=== PATIENT | female | born 1980 | race African-American/Black ===

== ENCOUNTER 2016-04-25 10:04 | Day surgery (SDC) | payer OTHER ==
[2016-04-24 10:01] VITALS: BMI 32.5
[2016-04-25] MEDS ORDERED: BUPIVACAINE HCL/PF 0.5% (5MG/ML) 10 ML VIAL ONE (10:14)
[2016-04-25 10:46] LABS: BASOPHIL 0.6 % (0-2.0); EOSINOPHIL 4.8 % (0-4.5); MCHC 33.6 g/dl (32.0-36.0); MEAN CELL VOLUME 92.2 fl (80-96); MEAN PLT VOLUME 7.4 fl (7.5-11.1); NEUTROPHILS 49.5 % (42.8-82.8); PLATELET COUNT 248 K/MM3 (134-434); RDW 13.5 % (11.6-15.6); WHITE BLOOD COUNT 5.5 K/mm3 (4.0-10.0)
[2016-04-25 11:03] LABS: INR 0.98 (0.82-1.09); PROTHROMBIN TIME (PATIENT) 10.8 SEC (9.98-11.88)
[2016-04-25 11:21] LABS: ALBUMIN 3.4 g/dl (3.4-5.0); ANION GAP 7 (8-16); CO2 26 mmol/L (21-32); CREATININE 0.7 mg/dL (0.55-1.02); GLUCOSE,RANDOM 89 mg/dL (74-106); SGOT/AST 20 U/L (15-37); SGPT/ALT 29 U/L (12-78)
[2016-04-25 11:24] LABS: ALK PHOS 70 U/L (45-117); BILIRUBIN,TOTAL 0.5 mg/dL (0.2-1.0); TOT PROT 6.9 g/dl (6.4-8.2)
[2016-04-25] MEDS ORDERED: KETOROLAC TROMETHAMINE 30 MG/1 ML VIAL ONE (12:43)
[2016-04-25] MEDS ORDERED: DEXAMETHASONE SOD PHOSPHATE 4 MG/1 ML VIAL ONE (12:43)
[2016-04-25] MEDS ORDERED: ceFAZolin SODIUM 1 GM VIAL ONE (12:43)
[2016-04-25] MEDS ORDERED: PROPOFOL 20 ML ONE ×2 (12:43)
[2016-04-25] MEDS ORDERED: ONDANSETRON 4 MG/2 ML VIAL ONE (12:43)
[2016-04-25] MEDS ORDERED: SODIUM CHLORIDE 0.9% P/F 10 ML VIAL IJ ONE (12:43)
[2016-04-25] MEDS ORDERED: ROCURONIUM BROMIDE 50 MG/5 ML VIAL ONE (12:43)
[2016-04-25] MEDS ORDERED: MIDAZOLAM HCL 2 MG/2 ML SINGLE DOSE VIAL ONE (12:44)
--- NOTE | 2016-04-25 12:45 | EKG ---
Test Reason : Blood Pressure : / mmHG Vent. Rate : 072 BPM Atrial Rate : 072 BPM P-R Int : 150 ms QRS Dur : 076 ms QT Int : 400 ms P-R-T Axes : 067 023 022 degrees QTc Int : 438 ms NORMAL SINUS RHYTHM WITH SINUS ARRHYTHMIA POSSIBLE LEFT ATRIAL ENLARGEMENT BORDERLINE ECG WHEN COMPARED WITH ECG OF 08-JUN-2014 15:59, NO SIGNIFICANT CHANGE WAS FOUND Confirmed by SUMAN ROSSI MD ([id number]) on 04/25/2016 12:45:03 PM Referred By: Jesica RODGERS Confirmed By:SUMAN ROSSI MD
--- NOTE | 2016-04-25 12:46 | HP ---
Past Medical History - Primary Care Physician PCP:: Joe Whitlock - Admission Chief Complaint: voluntary sterlization History of Present Illness: 35 yo f wants laparoscopic tubal ligation, risks of procedure discussed, , aware risk [id number], bleeding, injury to surrounding tissue, , anesthesia risk, postop complication, pain, ectopic discussed History Source: Patient Limitations to Obtaining History: No Limitations - Past Medical History ...: 4 ...Para: 4 - Past Surgical History Hx Myomectomy: No Hx Transabdominal Cerclage: No - Smoking History Smoking history: Never smoked Have you smoked in the past 12 months: No Aproximately how many cigarettes per day: 0 - Alcohol/Substance Use Hx Alcohol Use: Yes (occas) - Social History History of Recent Travel: No Home Medications - Allergies Allergies/Adverse Reactions: Allergies Allergy/AdvReac Type Severity Reaction Status Date / Time strawberry Allergy Mild Hives Verified 04/25/16 11:26 No Known Drug Allergies Allergy Verified 02/23/16 06:49 - Home Medications Home Medications: Ambulatory Orders Diphenhydramine HCl [Benadryl -] 25 mg PO Q6H PRN 04/24/16 Review of Systems - Review of Systems Constitutional: reports: No Symptoms Eyes: reports: No Symptoms Neck: reports: No Symptoms Cardiovascular: reports: No Symptoms Respiratory: reports: No Symptoms Gastrointestinal: reports: No Symptoms Genitourinary: reports: No Symptoms Breasts: reports: No Symptoms Reported Musculoskeletal: reports: No Symptoms Integumentary: reports: No Symptoms Neurological: reports: No Symptoms Endocrine: reports: No Symptoms Hematology/Lymphatic: reports: No Symptoms Psychiatric: reports: No Symptoms Physical Exam-PROTECTIVE SERVICE SPECIALIST Vital Signs: Vital Signs Temperature 97.8 F 04/25/16 11:10 Pulse Rate 67 04/25/16 11:10 Respiratory Rate 18 04/25/16 11:10 Blood Pressure 121/70 04/25/16 11:10 O2 Sat by Pulse Oximetry (%) 100 04/25/16 11:10 Constitutional: Yes: Well Nourished, No Distress, Calm Eyes: Yes: WNL, Conjunctiva Clear, EOM Intact HENT: Yes: WNL, Atraumatic, Normocephalic Neck: Yes: WNL, Supple, Trachea Midline Cardiovascular: Yes: WNL, Regular Rate and Rhythm Respiratory: Yes: WNL, Regular, CTA Bilaterally Gastrointestinal: Yes: WNL ...Rectal Exam: Yes: WNL Renal/: Yes: WNL Vaginal Exam: Yes: Normal Cervix: Yes: Normal Uterus: Yes: Normal Adnexa: Not Palpable: Left, Right Breast(s): Yes: WNL Musculoskeletal: Yes: WNL Extremities: Yes: WNL Integumentary: Yes: WNL Neurological: Yes: WNL, Alert, Oriented ...Motor Strength: WNL Psychiatric: Yes: WNL, Alert, Oriented Labs: CBC, BMP 04/25/16 10:35 04/25/16 10:35 Problem List - Problem (1) Sterilization Code(s): Z30.2 - ENCOUNTER FOR STERILIZATION Assessment/Plan laparoscopy tubal cauterization
[2016-04-25] MEDS ORDERED: NEOSTIGMINE METHYLSULFATE 0.5 MG/ML - 10 ML MDV ONE (13:43)
[2016-04-25] MEDS ORDERED: GLYCOPYRROLATE 0.2 MG/1 ML VIAL ONE (13:43)
[2016-04-25] MEDS ORDERED: oxyCODONE HCL 5 MG TABLET PO PRN ×2 (13:46→14:14)
[2016-04-25] MEDS ORDERED: ONDANSETRON 4 MG/2 ML VIAL IVPUSH PRN (13:46)
[2016-04-25] MEDS ORDERED: LACTATED RINGERS SOLUTION 1,000 ML IV SCH (14:00)
[2016-04-25] MEDS ORDERED: ONDANSETRON 4 MG/2 ML VIAL IVPB PRN (14:14)
[2016-04-25] MEDS ORDERED: IBUPROFEN 600 MG TABLET (FP) PO PRN (14:14)
[2016-04-25] MEDS ORDERED: IBUPROFEN 800 MG/8 ML IJ IVPB PRN (14:14)
[2016-04-25] MEDS ORDERED: ELECTROLYTE-148 SOLN 1,000 ML IV SCH (14:15)
[2016-04-25] MEDS ORDERED: oxyCODONE HCL 5 MG TABLET ONE (15:06)
[2016-04-25 15:35] VITALS: TEMP 97.9
[2016-04-25 16:38] VITALS: BP 121/74; PULSE 64
--- NOTE | 2016-04-26 17:03 | OP ---
DATE OF OPERATION: 04/25/2016 PREOPERATIVE DIAGNOSIS: Voluntary sterilization. POSTOPERATIVE DIAGNOSIS: Voluntary sterilization. PROCEDURE: Laparoscopic bilateral tubal cauterization. SURGEON: Joe Whitlock M.D. ANESTHESIA: General. ESTIMATED BLOOD LOSS: Minimal. OPERATION: Patient was taken to the operating room under adequate general anesthesia. examination of the pelvic organs showed extended genitalia to be normal, vagina was normal, cervix clean no lesion, uterus normal size, adnexa no masses were palpable. With the weighted speculum in the vagina, anterior lip of cervix was grasped with single-tooth tenaculum. Hulka was introduced into the uterine cavity for --. A Powell was inserted, and patient was prepped and draped for laparoscopic procedure. Small infraumbilical skin incision was made with the scalpel. The Veress needle was introduced. Normal peritoneum established. A 5-mm trocar was introduced through the umbilical area without any difficulty. Scope was introduced, visualization of the upper abdomen showed uterine diaphragm normal, pelvic organ uterus normal size, both tubes and ovaries were normal, no cul-de-sac adhesions. Then a 5-mm trocar was introduced through the suprapubic area under direct vision. Then right tube was identified, fimbriated end was visualized. Right tube was grasped with bipolar cautery and cauterized in 3 portions 2 cm apart. Same procedure repeated for the other tube. Visualization of both tubes showed adequate cauterization, no bleeding. Then abdomen was emptied of all the gas, and suprapubic and infraumbilical skin incisions were closed with 4-0 Biosyn interrupted suture and the with Dermabond. Skin was closed with Dermabond glucose. Patient tolerated procedure well, left the OR in good condition. JOE WHITLOCK M.D. [id number]
== END 2016-04-25 16:38 | disposition home or self-care (01) ==
LOC: JASU-SURG 10:04
PROVIDERS: ATTEND Obstetrics & Gynecology
PROC: 0UT74ZZ Resection of Bilateral Fallopian Tubes, Percutaneous Endoscopic Approach (ICD-10-PCS; principal; 2016-04-25 12:00)
DX: Z30.2 Encounter for sterilization (principal)
CPT/HCPCS: 36415; 71020-TC; 80053; 84702; 85025; 85610; 86850; 86900; 86901; 93005; 93010; 94760

== ENCOUNTER 2016-06-02 08:52 | Emergency (ER) | payer OTHER ==
[2016-06-02] MEDS ORDERED: ONDANSETRON 4 MG/2 ML VIAL ONE ×2 (08:59→09:48)
[2016-06-02 09:08] VITALS: BMI 32.5
--- NOTE | 2016-06-02 09:14 | PDOC ---
History of Present Illness - General History Source: Patient, Old Records Exam Limitations: No Limitations - History of Present Illness Initial Comments: 06/02/16 09:40 The patient is a 35 year old female (), with no significant past medical history, who presents to the emergency department with abdominal pain since approximately 6:30 AM this morning. She describes the pain as aching and localizes the pain to the center of her abdomen. The patient reports that she was drinking last night; she reports drinking 3 glasses of Pauline last night before going to sleep. At 6:30 AM, the patient reports that the abdominal pain woke her up from sleep. The patient additionally reports feeling nauseous but denies any episodes of vomiting yet. The patient denies fever, chills, diarrhea , constipation, hematuria, dysuria or any recent illnesses. Allergies: [place]. NKDA. Past Surgical History: Tubal Ligation. Social History: Non smoker. Reports social alcohol consumption. Denies drug use. PCP: Dr. Angie Cox <Herminia Naranjo - Last Filed: 06/02/16 09:42> <Bryn Kathleen - Last Filed: 06/02/16 12:25> - General Chief Complaint: Pain Stated Complaint: ABD PAIN Time Seen by Provider: 06/02/16 09:13 Past History <Herminia Naranjo - Last Filed: 06/02/16 09:42> - Past Medical History Anemia: No Asthma: No Cancer: No Cardiac Disorders: No CVA: No COPD: No CHF: No Dementia: No Diabetes: No GI Disorders: No Disorders: No HTN: No Hypercholesterolemia: No Liver Disease: No Suicide Attempt (Hx): No Seizures: No Thyroid Disease: No - Immunization History Immunization Up to Date: Yes - Psycho/Social/Smoking Cessation Hx Anxiety: No Suicidal Ideation: No Smoking Status: No Smoking History: Never smoked Have you smoked in the past 12 months: No Number of Cigarettes Smoked Daily: 0 Information on smoking cessation initiated: No Hx Alcohol Use: No Drug/Substance Use Hx: No Substance Use Type: None Hx Substance Use Treatment: No <Bryn Kathleen - Last Filed: 06/02/16 12:25> - Past Medical History Allergies/Adverse Reactions: Allergies Allergy/AdvReac Type Severity Reaction Status Date / Time strawberry Allergy Mild Hives Verified 06/02/16 09:06 No Known Drug Allergies Allergy Verified 06/02/16 09:06 Home Medications: Ambulatory Orders NK [No Known Home Medication] 06/02/16 Review of Systems - Review of Systems Able to Perform ROS?: Yes Comments:: 06/02/16 09:41 GENERAL/CONSTITUTIONAL: No fever or chills. No weakness. HEAD, EYES, EARS, NOSE AND THROAT: No change in vision. No ear pain or discharge. No sore throat. CARDIOVASCULAR: No chest pain or shortness of breath. RESPIRATORY: No cough, wheezing, or hemoptysis. GASTROINTESTINAL: +Nausea, abdominal pain. No vomiting, diarrhea or constipation. GENITOURINARY: No dysuria, frequency, or change in urination. MUSCULOSKELETAL: No joint or muscle swelling or pain. No neck or back pain. SKIN: No rash. NEUROLOGIC: No headache, vertigo, loss of consciousness, or change in strength/ sensation. ENDOCRINE: No increased thirst. No abnormal weight change. HEMATOLOGIC/LYMPHATIC: No anemia, easy bleeding, or history of blood clots. ALLERGIC/IMMUNOLOGIC: No hives or skin allergy <Herminia Naranjo - Last Filed: 06/02/16 09:42> *Physical Exam - Vital Signs Last Vital Signs Temp Pulse Resp BP Pulse Ox 97.9 F 76 18 111/74 100 06/02/16 08:57 06/02/16 08:57 06/02/16 08:57 06/02/16 08:57 06/02/16 08:57 - Physical Exam Comments: 06/02/16 09:41 GENERAL: Patient wont lie down or sit still, making a physical exam difficult. Awake, alert, and fully oriented, in no acute distress. HEAD: No signs of trauma. EYES: PERRLA, EOMI, sclera anicteric, conjunctiva clear. ENT: Auricles normal inspection, hearing grossly normal, nares patent, oropharynx clear without exudates. Moist mucosa. NECK: Normal ROM, supple, no lymphadenopathy, JVD, or masses. LUNGS: Breath sounds equal, clear to auscultation bilaterally. No wheezes, and no crackles. HEART: Regular rate and rhythm, normal S1 and S2, no murmurs, rubs or gallops. ABDOMEN: No apparent tenderness to the abdomen on palpation. Soft, nontender, normoactive bowel sounds. No guarding, no rebound. No masses. EXTREMITIES: Normal range of motion, no edema. No clubbing or cyanosis. No cords , erythema, or tenderness. NEUROLOGICAL: Cranial nerves II through XII intact. Normal speech, normal gait. SKIN: Warm, dry, normal turgor, no rashes or lesions noted. <Herminia Naranjo - Last Filed: 06/02/16 09:42> - Vital Signs Last Vital Signs Temp Pulse Resp BP Pulse Ox 97.9 F 76 18 111/74 100 06/02/16 08:57 06/02/16 08:57 06/02/16 08:57 06/02/16 08:57 06/02/16 08:57 <Bryn Kathleen - Last Filed: 06/02/16 12:25> ED Treatment Course - LABORATORY CBC & Chemistry Diagram: 06/02/16 10:32 06/02/16 10:32 <Bryn Kathleen - Last Filed: 06/02/16 12:25> *DC/Admit/Observation/Transfer - Attestations Scribe Attestion: 06/02/16 09:19 Documentation prepared by Herminia Naranjo, acting as caregivers non medical for Bryn Kathleen MD/. <Herminia Naranjo - Last Filed: 06/02/16 09:42> - Discharge Dispostion Admit: No - Attestations Physician Attestion: 06/02/16 09:14 I, Dr. Bryn Kathleen, attest that this document has been prepared under my direction and personally reviewed by me in its entirety. I further attest, that it accurately reflects all work, treatment, procedures and medical decision -making performed by me. <Bryn Kathleen - Last Filed: 06/02/16 12:25> Diagnosis at time of Disposition: Abdominal pain Qualifiers: Abdominal location: epigastric Qualified Code(s): R10.13 - Epigastric pain - Discharge Dispostion Disposition: HOME Condition at time of disposition: Good - Referrals Referrals: Angie Cox [Primary Care Provider] - - Patient Instructions Printed Discharge Instructions: DI for Urinary Tract Infection (UTI), DI for Alcoholic Gastritis Additional Instructions: Carol- Sorry this happened to you this morning. Rest, Plenty of fluids and a bland diet. Return to us if worse or any new symptoms occur. See your doctor next week. Keflex is four times a day. Hope you feel well again soon- Best- Dr. Bryn Kathleen
[2016-06-02] MEDS ORDERED: ONDANSETRON 4 MG/2 ML VIAL IVPUSH ONE (09:20)
[2016-06-02] MEDS ORDERED: diphenhydrAMINE HCL 12.5 MG/5 ML UNIT-DOSE CUPS PO ONE (09:27)
[2016-06-02] MEDS ORDERED: MAG HYDROX/AL HYDROX/SIMETH 30 ML UNIT-DOSE CUP PO ONE (09:27)
[2016-06-02] MEDS ORDERED: LIDOCAINE VISCOUS 2% ORAL/TOP 100 ML BOTTLE MM ONE (09:27)
[2016-06-02] MEDS ORDERED: SIMETHICONE 40 MG/0.6 ML BOTTLE PO ONE (09:29)
[2016-06-02] MEDS ORDERED: diphenhydrAMINE HCL 12.5 MG/5 ML BULK BOTTLE ONE (09:48)
[2016-06-02] MEDS ORDERED: MAG HYDROX/AL HYDROX/SIMETH 30 ML UNIT-DOSE CUP ONE (09:48)
[2016-06-02 10:59] LABS: BASOPHIL 0.6 % (0-2.0); EOSINOPHIL 3.5 % (0-4.5); MCH 30.8 pg (25.7-33.7); MCHC 33.1 g/dl (32.0-36.0); MEAN CELL VOLUME 93.2 fl (80-96); MEAN PLT VOLUME 7.9 fl (7.5-11.1); NEUTROPHILS 61.9 % (42.8-82.8); PLATELET COUNT 320 K/MM3 (134-434); RDW 13.5 % (11.6-15.6); WHITE BLOOD COUNT 7.9 K/mm3 (4.0-10.0)
[2016-06-02 11:04] LABS: URINE APPEARANCE SLCLOUDY; URINE BILIRUBIN NEGATIVE (NEGATIVE); URINE BLOOD NEGATIVE (NEGATIVE); URINE COLOR STRAW; URINE GLUCOSE (UA) NEGATIVE (NEGATIVE); URINE KETONE NEGATIVE (NEGATIVE); URINE NITRITE NEGATIVE (NEGATIVE); URINE PROTEIN NEGATIVE (NEGATIVE); URINE UROBILINOGEN NEGATIVE E.U./dl (0.2-1.0)
[2016-06-02 11:11] LABS: URINE LEUK ESTERASE 1+ (NEGATIVE)
[2016-06-02 11:12] LABS: URINE MARIJUANA THC NEGATIVE ng/ml (CUTOFF=50)
[2016-06-02 11:13] LABS: URINE MUCUS RARE; URINE RBC 1 /hpf (0-3); URINE WBC 5 /hpf (3-5)
[2016-06-02 11:25] LABS: ALBUMIN 3.8 g/dl (3.4-5.0); ALK PHOS 84 U/L (45-117); ANION GAP 5 (8-16); BILIRUBIN,TOTAL 0.4 mg/dL (0.2-1.0); CALCIUM 8.7 mg/dL (8.5-10.1); CO2 30 mmol/L (21-32); CREATININE 0.6 mg/dL (0.55-1.02); GLUCOSE,RANDOM 91 mg/dL (74-106); SGOT/AST 18 U/L (15-37); SGPT/ALT 25 U/L (12-78); TOT PROT 7.5 g/dl (6.4-8.2)
[2016-06-02] MEDS ORDERED: CEPHALEXIN MONOHYDRATE 250 MG CAPSULE (FP) PO ONE (12:16)
[2016-06-02] MEDS ORDERED: OXYCODONE/APAP 5/325MG COMBO TABLET PO ONE (12:16)
[2016-06-02] MEDS ORDERED: ONDANSETRON *ODT* 4 MG TABLET SL ONE (12:16)
[2016-06-02] MEDS ORDERED: SIMETHICONE 80 MG TAB.CHEW (FP) PO ONE (12:17)
[2016-06-02] MEDS ORDERED: CEPHALEXIN MONOHYDRATE 250 MG CAPSULE (FP) ONE (12:39)
[2016-06-02] MEDS ORDERED: OXYCODONE/APAP 5/325MG COMBO TABLET ONE (12:39)
[2016-06-02] MEDS ORDERED: ONDANSETRON *ODT* 4 MG TABLET ONE (12:39)
[2016-06-02 13:12] VITALS: BP 121/81; PULSE 83; TEMP 98.1
== END 2016-06-02 13:12 | disposition home or self-care (01) ==
LOC: JER 08:52
DX: K29.20 Alcoholic gastritis without bleeding (principal); N39.0 Urinary tract infection, site not specified
CPT/HCPCS: 36415; 80053; 80307; 81003; 81015; 83690; 84703; 85025; 87086; 99283-25

== ENCOUNTER 2016-08-24 11:30 | Emergency (ER) | payer OTHER ==
[2016-08-24 11:35] VITALS: BP 127/75; PULSE 87; TEMP 98.2; BMI 29.2
[2016-08-24] MEDS ORDERED: IBUPROFEN 600 MG TABLET (FP) PO ONE ×2 (12:12→12:15)
--- NOTE | 2016-08-24 12:26 | PDOC ---
History of Present Illness - General Chief Complaint: Pain Stated Complaint: GLASS OBJECT IN RT FOOT Time Seen by Provider: 08/24/16 11:56 History Source: Patient Exam Limitations: No Limitations - History of Present Illness Initial Comments: 08/24/16 12:26 Pt is a 36 y/o female with no PMH who presents to the ED c/o R foot pain. Pt. states approximately one week ago she stepped on glass. She did not believe that she had any glass in her foot. Pt. tried exploring the area of the cut and did not find any glass. She states that since then the pain in her foot has gotten worse and the area is now swollen. She is worried that there might be a piece of glass stuck in her foot. Denies fevers, chills, rash, numbness and tingling, n/v/d. Pt. states her last tetanus shot was 5 months ago. Past History - Travel Traveled outside of the country in the last 30 days: No Close contact w/someone who was outside of country & ill: No - Past Medical History Allergies/Adverse Reactions: Allergies Allergy/AdvReac Type Severity Reaction Status Date / Time strawberry Allergy Mild Hives Verified 06/02/16 09:06 No Known Drug Allergies Allergy Verified 06/02/16 09:06 Home Medications: Ambulatory Orders Acetaminophen W/ Codeine #3 [Tylenol # 3 -] 1 tab PO HS #10 tablet MDD 2 Sulfamethoxazole/Trimethoprim [Bactrim Ds -] 1 tab PO BID #14 tablet 08/24/16 Anemia: No Asthma: No Cancer: No Cardiac Disorders: No CVA: No COPD: No CHF: No Dementia: No Diabetes: No GI Disorders: No Disorders: No HTN: No Hypercholesterolemia: No Liver Disease: No Suicide Attempt (Hx): No Seizures: No Thyroid Disease: No - Immunization History Immunization Up to Date: Yes - Psycho/Social/Smoking Cessation Hx Anxiety: No Suicidal Ideation: No Smoking Status: No Smoking History: Never smoked Have you smoked in the past 12 months: No Number of Cigarettes Smoked Daily: 0 Information on smoking cessation initiated: No Hx Alcohol Use: Yes (occas) Drug/Substance Use Hx: No Substance Use Type: None Hx Substance Use Treatment: No Review of Systems - Review of Systems Able to Perform ROS?: Yes Is the patient limited Lao proficient: No Constitutional: No: Chills, Fever, Weakness Integumentary: Yes: Other (Swelling of R ventral mid foot). No: Erythema, Rash Neurological: No: Numbness, Weakness *Physical Exam - Vital Signs Last Vital Signs Temp Pulse Resp BP Pulse Ox 98.2 F 87 18 127/75 100 08/24/16 11:31 08/24/16 11:31 08/24/16 11:31 08/24/16 11:31 08/24/16 11:31 - Physical Exam General Appearance: Yes: Nourished, Appropriately Dressed. No: Apparent Distress Vascular Pulses: Dorsalis-Pedis (R): 2+, Doralis-Pedis (L): 2+ Extremity: positive: Normal Capillary Refill, Normal Range of Motion (Pain with dorsiflexion of foot. ), Tender (TTP of central plantar foot. ), Swelling (Mid plantar.) Integumentary: positive: Normal Color, Dry, Warm (No obivous foreign body palpated, or seen on exam), Erythema, Swelling, Other. 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 Patient states that she stepped on glass shards 2 days ago and is concerned there might be a piece of glass in her foot. Based on her exam cannot rule out foreign body. Foot is very tender. We'll send for x-ray at this time. Will give Motrin for pain. Re-evaluate. 08/24/16 13:12 X-rays are negative at this time. There is no foreign body in the foot. No fractures are seen. Given patient's level of pain and swelling at the site cannot rule out sliver of glass (splinterlike) still stuck in the foot. Will make patient nonweightbearing. We'll give antibiotics to treat potential infection. We'll also refer to podiatry. We'll discharge home at this time with pain management. Patient understands all discharge instructions and all questions were answered at this time. *DC/Admit/Observation/Transfer Diagnosis at time of Disposition: Foot pain, right - Discharge Dispostion Admit: No - Prescriptions Prescriptions: Sulfamethoxazole/Trimethoprim [Bactrim Ds -] 1 tab PO BID #14 tablet Acetaminophen W/ Codeine #3 [Tylenol # 3 -] 1 tab PO HS #10 tablet MDD 2 - Referrals Referrals: Zahra Dexter [Primary Care Provider] - Estevan Peng MD [Staff Physician] - - Patient Instructions Additional Instructions: You have right foot pain that may be due to a foreign body. Your x-ray shows no indication of any thing in the foot, however, a small shard of glass may not show on your x-ray. Do warm water soaks for 15 minutes a day, 4 times a day. Keep off of your foot for the next week, or until you can see a quality lead. You have a referral for a quality lead. You were prescribed tylenol with codiene for pain. Take this at night. Do not drive after taking this medication as it may make you drowsy. You were also prescribed antibiotics. Take your antibiotics as prescribed and take the entire dose. Return to the ED if you develop, fevers, chills, increased pain in the foot, or if there are any changes in your symptoms. - Post Discharge Activity Work/School Note: Back to Work
== END 2016-08-24 14:04 | disposition home or self-care (01) ==
LOC: JERFT 11:30
DX: M79.671 Pain in right foot (principal); W22.8XXA Striking against or struck by other objects, initial encounter; Y93.9 Activity, unspecified; Y92.9 Unspecified place or not applicable
CPT/HCPCS: 73630-TC-RT; 99281-25

== ENCOUNTER 2018-01-21 16:08 | Emergency (ER) | payer OTHER ==
[2018-01-21 16:19] VITALS: BP 116/77; PULSE 100; TEMP 97.8
--- NOTE | 2018-01-21 16:19 | PDOC ---
Rapid Medical Evaluation Time Seen by Provider: 01/21/18 16:16 Medical Evaluation: Allergies Allergy/AdvReac Type Severity Reaction Status Date / Time strawberry Allergy Mild Hives Verified 06/02/16 09:06 No Known Drug Allergies Allergy Verified 06/02/16 09:06 01/21/18 16:16 I have performed a brief in-person evaluation of this patient. The patient presents with a chief complaint of: Dental pain, currently on naproxen and amoxicillin given in [place] yesterday but states meds not helping. Scheduled to see dentist tomorrow, here for pain control Pertinent physical exam findings:defer to FT provider I have ordered the following:nothing The patient will proceed to the ED for further evaluation. Discharge Disposition - Diagnosis Pain, dental - Referrals - Patient Instructions - Post Discharge Activity
--- NOTE | 2018-01-21 17:41 | PDOC ---
History of Present Illness - General Chief Complaint: Toothache Stated Complaint: TOOTHACHE Time Seen by Provider: 01/21/18 16:16 - History of Present Illness Initial Comments: 01/21/18 17:39 87-year-old female presents for evaluation of toothache 2 days. She was seen at another hospital given a prescription for Naprosyn and amoxicillin but states her pain continues. Past History - Past Medical History Allergies/Adverse Reactions: Allergies Allergy/AdvReac Type Severity Reaction Status Date / Time strawberry Allergy Mild Hives Verified 01/21/18 16:20 No Known Drug Allergies Allergy Verified 01/21/18 16:20 Home Medications: Ambulatory Orders Amoxicillin - [Amoxicillin 500mg Capsule -] 500 mg PO TID 01/21/18 Naproxen [Naprosyn -] 500 mg PO BID 01/21/18 Anemia: No Asthma: No Cancer: No Cardiac Disorders: No CVA: No COPD: No CHF: No Dementia: No Diabetes: No GI Disorders: No Disorders: No HTN: No Hypercholesterolemia: No Liver Disease: No Seizures: No Thyroid Disease: No - Immunization History Immunization Up to Date: Yes - Suicide/Smoking/Psychosocial Hx Smoking Status: No Smoking History: Never smoked Have you smoked in the past 12 months: No Number of Cigarettes Smoked Daily: 0 Hx Alcohol Use: Yes (occas) Drug/Substance Use Hx: No Substance Use Type: None Hx Substance Use Treatment: No Review of Systems - Review of Systems HEENTM: Yes: Dental Problems All Other Systems: Reviewed and Negative *Physical Exam - Vital Signs Last Vital Signs Temp Pulse Resp BP Pulse Ox 97.8 F 100 H 18 116/77 99 01/21/18 16:14 01/21/18 16:14 01/21/18 16:14 01/21/18 16:14 01/21/18 16:14 - Physical Exam Comments: 01/21/18 17:39 HEAD: NC/AT EYES: Conjuntiva clear Ears: Canals and TM's normal NOSE: No d/c THROAT: Moist mucous membrances, oral pharanx clear, uvula midline there is a cavity in the right incisor MS: Full ROM in all joints without edema NEUROLOGIC: No gross sensory or motor deficits, NVID SKIN: Normal color and temperature no lesions or rashes Medical Decision Making - Medical Decision Making 01/21/18 17:40 She is requesting narcotic pain medicine. I have advised her this is not the way I treat toothaches. I have advised her to the urgent dental right now which is a facility that will evaluate and treat her pain. She is in agreement she will also continue the amoxicillin and Naprosyn as directed *DC/Admit/Observation/Transfer Diagnosis at time of Disposition: Pain, dental - Discharge Dispostion Disposition: HOME Condition at time of disposition: Stable Decision to Admit order: No - Referrals Referrals: [facility] [Outside] - Patient Instructions Printed Discharge Instructions: DI for Tooth Decay Additional Instructions: Please follow-up with urgent care dental as soon as possible return to the emergency room should symptoms worsen or go unresolved and continue to take the medication which your prescribed as directed. - Post Discharge Activity
== END 2018-01-21 17:45 | disposition home or self-care (01) ==
LOC: JERFT 16:08
DX: K08.89 Other specified disorders of teeth and supporting structures (principal)
CPT/HCPCS: 99281-25

== ENCOUNTER 2018-06-10 13:15 | Emergency (ER) | payer OTHER ==
--- NOTE | 2018-06-10 13:21 | PDOC ---
Rapid Medical Evaluation Time Seen by Provider: 06/10/18 13:19 Medical Evaluation: Allergies Allergy/AdvReac Type Severity Reaction Status Date / Time strawberry Allergy Mild Hives Verified 06/10/18 13:19 No Known Drug Allergies Allergy Verified 06/10/18 13:19 03 13:19 I have performed a brief in-person evaluation of this patient. The patient presents with a chief complaint of mid back pain since this am. States pain started this am when she bend forward. States pain still persist, took advil with no relief of symptoms Pertinent physical exam findings NAD even and unlabored breathing no midspinal tenderness, I have ordered the following urine The patient will proceed to the ED for further evaluation.
[2018-06-10 13:23] VITALS: BP 108/75; PULSE 75; TEMP 98.1; BMI 30.9
--- NOTE | 2018-06-10 14:53 | PDOC ---
History of Present Illness - General Chief Complaint: Back Pain Stated Complaint: ABD / BACK PAIN Time Seen by Provider: 06/10/18 13:19 - History of Present Illness Initial Comments: 06/10/18 14:47 37-year-old female without comorbidities presents for evaluation of lower and mid back pain without radicular symptoms. She states the back pain started while dressing her daughter and putting on her pants and pulling her pants up. Past History - Past Medical History Allergies/Adverse Reactions: Allergies Allergy/AdvReac Type Severity Reaction Status Date / Time strawberry Allergy Mild Hives Verified 06/10/18 13:19 No Known Drug Allergies Allergy Verified 06/10/18 13:19 Home Medications: Ambulatory Orders Cyclobenzaprine HCl [Flexeril 10 mg] 10 mg PO HS PRN #10 tablet 06/10/18 Ibuprofen [Motrin -] 600 mg PO TID #30 tablet 06/10/18 Anemia: No Asthma: No Cancer: No Cardiac Disorders: No CVA: No COPD: No CHF: No Dementia: No Diabetes: No GI Disorders: No Disorders: No HTN: No Hypercholesterolemia: No Liver Disease: No Seizures: No Thyroid Disease: No - Immunization History Immunization Up to Date: Yes - Suicide/Smoking/Psychosocial Hx Smoking Status: No Smoking History: Never smoked Have you smoked in the past 12 months: No Number of Cigarettes Smoked Daily: 0 Hx Alcohol Use: No Drug/Substance Use Hx: No Substance Use Type: None Hx Substance Use Treatment: No Review of Systems - Review of Systems Musculoskeletal: Yes: Back Pain *Physical Exam - Vital Signs Last Vital Signs Temp Pulse Resp BP Pulse Ox 98.1 F 75 16 108/75 98 06/10/18 13:20 06/10/18 13:20 06/10/18 13:20 06/10/18 13:20 06/10/18 13:20 - Physical Exam Comments: 06/10/18 14:49 The rectal lumbar spine skin color and temperature are normal range of motion is slightly limited. There is no midline tenderness. Moderate thoracolumbar musculature spasm and tenderness. 5 out of 5 strength in bilateral upper and lower extremities without gross sensorimotor deficits. She is neurovascularly intact. Moderate Sedation - Procedure Monitoring Vital Signs: Procedure Monitoring Vital Signs Temperature 98.1 F 06/10/18 13:20 Pulse Rate 75 06/10/18 13:20 Respiratory Rate 16 06/10/18 13:20 Blood Pressure 108/75 06/10/18 13:20 O2 Sat by Pulse Oximetry (%) 98 06/10/18 13:20 ED Treatment Course - ADDITIONAL ORDERS Additional order review: Laboratory Results 06/10/18 14:11 Urine HCG, Qual Negative Medical Decision Making - Medical Decision Making 06/10/18 14:50 This is a thoracic and lumbar spine strain we'll treat with anti-inflammatories and muscle relaxer follow-up with orthopedic spine surgery. *DC/Admit/Observation/Transfer Diagnosis at time of Disposition: Mid back pain, Muscle strain - Discharge Dispostion Disposition: HOME Condition at time of disposition: Stable Decision to Admit order: No - Prescriptions Prescriptions: Cyclobenzaprine HCl [Flexeril 10 mg] 10 mg PO HS PRN #10 tablet PRN Reason: Muscle Spasms Ibuprofen [Motrin -] 600 mg PO TID #30 tablet - Referrals Referrals: Dwaine Dickerson MD [Staff Physician] - - Patient Instructions Printed Discharge Instructions: DI for Back Strain or Sprain Additional Instructions: The anti-inflammatory as prescribed he was one tablet 3 times a day with food. Discontinue the medication if it bothers her stomach and return to the emergency room should symptoms worsen. The muscle relaxers one tablet before bedtime and will make you sleepy. Follow-up with spine surgery in 2-3 days for further evaluation and treatment options. - Post Discharge Activity
[2018-06-10] MEDS ORDERED: IBUPROFEN 600 MG TABLET (FP) PO ONE ×2 (15:00→15:02)
== END 2018-06-10 15:04 | disposition home or self-care (01) ==
LOC: JERFT 13:15
DX: S29.012A Strain of muscle and tendon of back wall of thorax, initial encounter (principal); X50.1XXA Overexertion from prolonged static or awkward postures, initial encounter; X50.9XXA Other and unspecified overexertion or strenuous movements or postures, initial encounter; Y93.89 Activity, other specified; Y92.038 Other place in apartment as the place of occurrence of the external cause; Y99.8 Other external cause status
CPT/HCPCS: 84703; 99281-25

== ENCOUNTER 2019-01-06 16:38 | Emergency (ER) | payer OTHER ==
[2019-01-06 16:43] VITALS: BP 119/81; PULSE 85; TEMP 98.6; BMI 30.9
--- NOTE | 2019-01-06 17:21 | PDOC ---
History of Present Illness - General Chief Complaint: Lightheaded Stated Complaint: Lightheaded, headache, rt arm tingling Time Seen by Provider: 01/06/19 17:19 History Source: Patient Exam Limitations: No Limitations - History of Present Illness Initial Comments: 01/06/19 18:18 Carol Ji is a 38yF w PMHx obesity presenting with lightheadedness and headache. Sudden onset lightheadedness, bilateral frontal headache, R ear irritation, colette hand paresthesias at 9:40a this morning. Only drank strong coffee, did not eat any food this morning before symptom onset. Has been taking benadryl for environmental allergies for past few days. Currently complaining of 5/10 headache and lightheadedness. Denies recent travel. Denies fever, bleeding, nausea/vomiting, chest pain, SOB, urinary/bowel movement changes Past History - Past Medical History Allergies/Adverse Reactions: Allergies Allergy/AdvReac Type Severity Reaction Status Date / Time strawberry Allergy Mild Hives Verified 01/06/19 16:43 No Known Drug Allergies Allergy Verified 01/06/19 16:43 Home Medications: Ambulatory Orders Cyclobenzaprine HCl [Flexeril 10 mg] 10 mg PO HS PRN #10 tablet 06/10/18 Ibuprofen [Motrin -] 600 mg PO TID #30 tablet 06/10/18 Anemia: No Asthma: No Cancer: No Cardiac Disorders: No CVA: No COPD: No CHF: No Dementia: No Diabetes: No GI Disorders: No Disorders: No HTN: No Hypercholesterolemia: No Liver Disease: No Seizures: No Thyroid Disease: No - Immunization History Immunization Up to Date: Yes - Psycho Social/Smoking Cessation Hx Smoking Status: No Smoking History: Never smoked Have you smoked in the past 12 months: No Number of Cigarettes Smoked Daily: 0 Information on smoking cessation initiated: No Hx Alcohol Use: No Drug/Substance Use Hx: No Substance Use Type: None Hx Substance Use Treatment: No Review of Systems - Review of Systems Constitutional: No: Chills, Fever HEENTM: No: Eye Pain, Recent change in vision, Nose Pain, Throat Pain, Mouth Pain Respiratory: No: Cough, Shortness of Breath Cardiac (ROS): No: Chest Pain, Palpitations, Syncope ABD/GI: Yes: Poor Fluid Intake. No: Abdominal Distended, Constipated, Diarrhea , Nausea, Vomiting : No: Burning, Dysuria, Discharge, Frequency, Flank Pain, Hematuria Musculoskeletal: No: Back Pain, Joint Pain, Joint Swelling, Muscle Pain Integumentary: No: Bruising, Dryness, Erythema Neurological: Yes: Headache, Paresthesia, Dizziness. No: Seizure, Tingling Psychiatric: No: Anxiety, Depression, Stressors Endocrine: No: Excessive Sweating, Flushing, Intolerance to Cold, Intolerance to Heat Hematologic/Lymphatic: No: Anemia, Blood Clots, Easy Bleeding *Physical Exam - Vital Signs Last Vital Signs Temp Pulse Resp BP Pulse Ox 98.6 F 85 19 119/81 99 01/06/19 16:41 01/06/19 16:41 01/06/19 16:41 01/06/19 16:41 01/06/19 16:41 - Physical Exam General Appearance: Yes: Nourished, Appropriately Dressed. No: Apparent Distress HEENT: positive: EOMI, PRECIOSU, Normal Voice, Hearing Grossly Normal. negative: Scleral Icterus (R), Scleral Icterus (L), Pharyngeal Erythema, Tonsillar Exudate , Tonsillar Erythema, Nasal Congestion, Rhinorrhea, Sinus Tenderness, TM Bulging , TM Erythema, Lesions Respiratory/Chest: positive: Lungs Clear, Normal Breath Sounds. negative: Chest Tender, Respiratory Distress, Crackles, Rales, Rhonchi, Stridor, Wheezing Cardiovascular: positive: Regular Rhythm, Regular Rate, S1, S2. negative: Edema , Murmur Musculoskeletal: negative: CVA Tenderness (R), CVA Tenderness (L) Extremity: positive: Delayed Capillary Refill Integumentary: positive: Normal Color Neurologic: positive: Fully Oriented, Alert, Normal Response, Responsive. negative: Numbness, Confused, Disoriented ED Treatment Course - LABORATORY CBC & Chemistry Diagram: 01/06/19 18:10 01/06/19 18:10 Medical Decision Making - Medical Decision Making 01/06/19 18:32 CBC BMP EKG 1L NS, tylenol CBC, BMP normal EKG shows NSR, HR 72, QTc 440, no ST changes Carol Ji is a 38yF w PMHx obesity presenting with lightheadedness and headache likely d/t dehydration. Not anemic, no signs of infection on exam or labs. Low concern for ACS (few risk factors, no chest pain/SOB, NSR EKG). 1L NS , tylenol relieved pain. D/c home with PCP f/u, drink fluid instructions Discharge - Discharge Information Problems reviewed: Yes Clinical Impression/Diagnosis: Dehydration Headache Qualifiers: Headache type: unspecified Headache chronicity pattern: acute headache Intractability: not intractable Qualified Code(s): R51 - Headache Condition: Improved Disposition: HOME - Follow up/Referral Referrals: Angie Cox [Primary Care Provider] - - Patient Discharge Instructions Patient Printed Discharge Instructions: DI for Headache Additional Instructions: You were seen for lightheadedness and headache. Your labs did not show anything concerning. You were given medication for your headache. Please follow up with your primary care doctor regarding this visit. Eat breakfast and drink plenty of fluids. Limit your coffee intake. You can take tylenol or ibuprofen as directed on packaging if you continue to have pain. Come back to the ED if you have chest pain, trouble breathing, or worsening headache. - Post Discharge Activity
[2019-01-06] MEDS ORDERED: ACETAMINOPHEN 1000 MG/100 ML VIAL (NON FORMULARY) IVPB ONE (17:52)
[2019-01-06] MEDS ORDERED: SODIUM CHLORIDE 0.9% 500 ML INFUS.BAG IV ONE (17:58)
[2019-01-06] MEDS ORDERED: ACETAMINOPHEN INJECTION 100 ML IVPB ONE (18:14)
[2019-01-06 18:22] LABS: HEMATOCRIT 34.4 % (32.4-45.2); HEMOGLOBIN 11.4 GM/dL (10.7-15.3); MCH 30.3 pg (25.7-33.7); MCHC 33.2 g/dl (32.0-36.0); MEAN CELL VOLUME 91.1 fl (80-96); MEAN PLT VOLUME 7.6 fl (7.5-11.1); PLATELET COUNT 351 K/MM3 (134-434); RBC 3.77 M/mm3 (3.60-5.2); RDW 13.9 % (11.6-15.6); WHITE BLOOD COUNT 7.8 K/mm3 (4.0-10.0)
[2019-01-06 18:54] LABS: BLOOD UREA NITROGEN 13.2 mg/dL (7-18); CALCIUM 8.4 mg/dL (8.5-10.1); CREATININE 0.9 mg/dL (0.55-1.3); POTASSIUM 4.1 mmol/L (3.5-5.1)
--- NOTE | 2019-01-06 19:25 | PDOC ---
Documentation entered by Geovanna Frank SCRIBE, acting as scribe for Jennifer Randall MD. Jennifer Randall MD: This documentation has been prepared by the Zac butcher Brenda, SCRIBE, under my direction and personally reviewed by me in its entirety. I confirm that the documentation accurately reflects all work, treatment, procedures, and medical decision making performed by me. Attending Attestation - Resident Resident Name: Arvind Ramsey - ED Attending Attestation I have performed the following: I have examined & evaluated the patient, The case was reviewed & discussed with the resident, I agree w/resident's findings & plan, Exceptions are as noted - HPI HPI: 01/06/19 19:03 The patient is a 38 year old female with a significant past medical history of obesity, who presents to the ED with complaint of a sudden onset of lightheadedness and a headache, which she says is bilateral frontal. She also endorses right ear irritation, and bilateral hand numbness and tingling starting this morning. She admits to low PO intake today, and has been taking benadryl for allergies for the past couple of days. Denies recent travel. Denies fever, bleeding, nausea/vomiting, chest pain, SOB. Denies any gastrointestinal symptoms and urinary symptoms. Social History: Denies any tobacco use, alcohol use or illicit drug use. PCP: Bhavesh Cox - Physicial Exam PE: 01/06/19 19:[address] Ramsey's physical exam - Medical Decision Making 01/06/19 19:24 labs unremarkable pt given tylenol and IV fluids and her symptoms resolved pt d/c home
--- NOTE | 2019-01-07 12:06 | EKG ---
Test Reason : Blood Pressure : / mmHG Vent. Rate : 072 BPM Atrial Rate : 072 BPM P-R Int : 150 ms QRS Dur : 074 ms QT Int : 402 ms P-R-T Axes : 049 022 028 degrees QTc Int : 440 ms NORMAL SINUS RHYTHM NORMAL ECG WHEN COMPARED WITH ECG OF 25-APR-2016 10:34, NO SIGNIFICANT CHANGE WAS FOUND Confirmed by Chandler Gallego ([id number]) on 01/07/2019 12:06:27 PM Referred By: Confirmed By:Chandler Gallego
== END 2019-01-06 19:21 | disposition home or self-care (01) ==
LOC: JER 16:38
PROC: 3E033NZ Introduction of Analgesics, Hypnotics, Sedatives into Peripheral Vein, Percutaneous Approach (ICD-10-PCS; principal; 2019-01-06)
DX: E86.0 Dehydration (principal); R51 Headache; E66.9 Obesity, unspecified; Z68.30 Body mass index [BMI] 30.0-30.9, adult; Z91.018 Allergy to other foods
CPT/HCPCS: 36415; 80048; 85027; 93005; 93010; 96374; 99284-25; J0131

== ENCOUNTER 2019-04-26 06:31 | Emergency (ER) | payer OTHER ==
[2019-04-26 07:20] VITALS: TEMP 97.8; BMI 32.3
[2019-04-26] MEDS ORDERED: CEPHALEXIN MONOHYDRATE 500 MG CAPSULE (UD) PO ONE (07:37)
[2019-04-26] MEDS ORDERED: SULFAMETHOXAZOLE/TRIMETHOPRIM 800MG/160MG D.S. TABLET PO ONE (07:37)
[2019-04-26] MEDS ORDERED: CEPHALEXIN MONOHYDRATE 500 MG CAPSULE (UD) ONE (07:44)
[2019-04-26] MEDS ORDERED: SULFAMETHOXAZOLE/TRIMETHOPRIM 800MG/160MG D.S. TABLET ONE (07:44)
--- NOTE | 2019-04-26 07:48 | PDOC ---
History of Present Illness - General Chief Complaint: Allergic Reaction Stated Complaint: LT SIDE MOUTH/FACE SWOLLEN Time Seen by Provider: 04/26/19 07:19 History Source: Patient Exam Limitations: Clinical Condition - History of Present Illness Initial Comments: 04/26/19 08:09 Patient with no significant past medical history present with complaint of 3- day history of swelling to left side of upper lip which is painful. Patient reports swelling started as mild 3 days ago after putting Vaseline on the lip. Patient reports taking Benadryl 3 days ago for symptoms with P but has not taken anything else since then. Denies shortness of breath, tongue swelling, fever, choking sensation. Denies recent soap changes or insect bites. Patient does not know what caused her symptoms Is this a multiple visit Asthma Patient?: No Timing/Duration: other (3 days) Past History - Past Medical History Allergies/Adverse Reactions: Allergies Allergy/AdvReac Type Severity Reaction Status Date / Time strawberry Allergy Mild Hives Verified 01/06/19 16:43 No Known Drug Allergies Allergy Verified 01/06/19 16:43 Home Medications: Ambulatory Orders Cephalexin Monohydrate [Keflex -] 500 mg PO BID 7 Days #14 capsule 04/26/19 Famotidine [Pepcid -] 20 mg PO BID #14 tablet 04/26/19 Sulfamethoxazole/Trimethoprim [Bactrim Ds Tablet] 1 each PO BID 7 Days #14 tablet 04/26/19 Anemia: No Asthma: No Cancer: No Cardiac Disorders: No CVA: No COPD: No CHF: No Dementia: No Diabetes: No GI Disorders: No Disorders: No HTN: No Hypercholesterolemia: No Liver Disease: No Seizures: No Thyroid Disease: No - Immunization History Immunization Up to Date: Yes - Psycho Social/Smoking Cessation Hx Smoking Status: No Smoking History: Never smoked Have you smoked in the past 12 months: No Number of Cigarettes Smoked Daily: 0 Information on smoking cessation initiated: No Hx Alcohol Use: No Drug/Substance Use Hx: No Substance Use Type: None Hx Substance Use Treatment: No Review of Systems - Review of Systems Able to Perform ROS?: Yes Is the patient limited Kinyarwanda proficient: No Constitutional: No: Chills, Fever, Malaise HEENTM: Yes: Symptoms Reported, See HPI, Mouth Swelling (upper left side lip swelling), Other. No: Eye Pain, Blurred Vision, Tearing, Recent change in vision, Double Vision, Cataracts, Ear Pain, Ocular Prothesis, Ear Discharge, Nose Pain, Nose Congestion, Tinnitus, Nose Bleeding, Hearing Loss, Throat Pain, Throat Swelling, Mouth Pain, Dental Problems, Difficulty Swallowing Respiratory: No: Symptoms reported, See HPI, Cough, Orthopnea, Shortness of Breath, SOB with Exertion, SOB at Rest, Stridor, Wheezing, Productive cough, Hemoptysis, Other Cardiac (ROS): No: Symptoms Reported, See HPI, Chest Pain, Edema, Irregular Heart Rate, Lightheadedness, Palpitations, Syncope, Chest Tightness, Other ABD/GI: No: Symptoms Reported, Nausea, Vomiting All Other Systems: Reviewed and Negative *Physical Exam - Vital Signs Last Vital Signs Temp Pulse Resp BP Pulse Ox 97.8 F 72 18 128/74 98 04/26/19 07:14 04/26/19 07:14 04/26/19 07:14 04/26/19 07:14 04/26/19 07:14 - Physical Exam 04/26/19 08:14 GENERAL: Well developed, well nourished. Awake and alert. No acute distress. HEENT: Moderate swelling to left upper lip with mild yellow discoloration and mild erythema to left side of upper lip over swelling. No tongue swelling or oropharynx swelling. Normocephalic, atraumatic. PERRLA, EOMI. No conjunctival pallor. Sclera are non-icteric. Moist mucous membranes. Oropharynx is clear. NECK: Supple. Full ROM. CARDIOVASCULAR: Regular rate and rhythm. No murmurs, rubs, or gallops. Distal pulses are 2+ and symmetric. PULMONARY: No evidence of respiratory distress. Lungs clear to auscultation bilaterally. No wheezing, rales or rhonchi. MUSCULOSKELETAL Normal range of motion at all joints. SKIN: Warm and dry. Normal capillary refill. Moderate swelling to left upper lip with mild yellow discoloration and mild erythema to left side of upper lip over swelling NEUROLOGICAL: Alert, awake, appropriate. Gait is normal without ataxia. PSYCHIATRIC: Cooperative. Good eye contact. Appropriate mood General Appearance: Yes: Nourished, Appropriately Dressed. No: Apparent Distress Medical Decision Making - Medical Decision Making 04/26/19 08:13 Patient with no significant past medical history present with complaint of 3- day history of swelling to left side of upper lip which is painful. Patient reports swelling started as mild 3 days ago after putting Vaseline on the lip. Patient reports taking Benadryl 3 days ago for symptoms with P but has not taken anything else since then. Denies shortness of breath, tongue swelling, fever, choking sensation. Denies recent soap changes or insect bites. Patient does not know what caused her symptoms Exam significant for moderate swelling to left side of upper lip with areas of discoloration and tiny opening. No drainage from site. Mild erythema to swelling. Symptoms consistent with perioral abscess. Given patient afebrile, will treat on outpatient treatment on p.o. antibiotics on Keflex and Bactrim twice daily for a week as patient does not want I&D. Patient advised to do hot compress and follow-up in 2 days for reassessment. Patient advised to come back early if worsening symptoms. Patient voiced understanding and stable for discharge Discharge - Discharge Information Problems reviewed: Yes Clinical Impression/Diagnosis: Lip swelling, Lip abscess Condition: Stable Disposition: HOME - Admission No - Additional Discharge Information Prescriptions: Cephalexin Monohydrate [Keflex -] 500 mg PO BID 7 Days #14 capsule Famotidine [Pepcid -] 20 mg PO BID #14 tablet Sulfamethoxazole/Trimethoprim [Bactrim Ds Tablet] 1 each PO BID 7 Days #14 tablet - Follow up/Referral Referrals: Ney Ayala MD [Staff Physician] - - Patient Discharge Instructions Patient Printed Discharge Instructions: DI for Skin Abscess Additional Instructions: Swelling of the left likely skin abscess. Take prescribed antibiotics and finish it. Apply warm compress to lip 2-3 times a day as discussed for swelling. Follow-up in 2 days to recheck swelling. Make follow-up appointment with referred ENT on Sunday. Come back to emergency room if worsening swelling , fevers, shortness of breath, tongue swelling - Post Discharge Activity
[2019-04-26] MEDS ORDERED: diphenhydrAMINE HCL 25 MG CAPSULE (FP) PO ONE ×2 (07:49→07:50)
[2019-04-26 07:58] VITALS: BP 129/73; PULSE 79
== END 2019-04-26 07:58 | disposition home or self-care (01) ==
LOC: JER 06:31
DX: K13.0 Diseases of lips (principal); Z91.018 Allergy to other foods
CPT/HCPCS: 99282-25

== ENCOUNTER 2020-10-08 05:23 | Inpatient (IN) | payer OTHER ==
[~2020-10-08 05:23] MED LIST: BUPIVACAINE HCL/PF 0.5% (5 MG/ML) 30 ML VIAL IJ ONE
[2020-10-08 05:35] VITALS: BMI 42.9
[2020-10-08] MEDS ORDERED: LACTATED RINGERS SOLUTION 1000 ML INFUS.BAG IV ONE (05:47)
[2020-10-08] MEDS ORDERED: ACETAMINOPHEN 1000 MG/100 ML VIAL (NON FORMULARY) IVPB ONE (05:47)
[2020-10-08] MEDS ORDERED: ONDANSETRON 4 MG/2 ML VIAL IVPUSH ONE ×2 (05:48→12:39)
[2020-10-08] MEDS ORDERED: FAMOTIDINE 20 MG/50 ML IVPB 20 MG/50 ML MG IVPB ONE ×2 (05:55→06:02)
[2020-10-08] MEDS ORDERED: MAG HYDROX/AL HYDROX/SIMETH 30 ML UNIT-DOSE CUP PO ONE (05:55)
[2020-10-08 06:00] LABS: BASO % 0.7 % (0-2.0); EOS % 4.8 % (0-4.5); HEMATOCRIT 36.4 % (32.4-45.2); HEMOGLOBIN 11.9 GM/dL (10.7-15.3); LYMPH % 39.3 % (8-40); MCH 29.7 pg (25.7-33.7); MCHC 32.8 g/dl (32.0-36.0); MEAN CELL VOLUME 90.6 fl (80-96); MONO % 6.6 % (3.8-10.2); NEUT % 48.6 % (42.8-82.8); PLATELET COUNT 329 10^3/uL (134-434); RBC 4.02 M/mm3 (3.60-5.2); RDW 13.3 % (11.6-15.6); WHITE BLOOD COUNT 6.4 K/mm3 (4.0-10.0)
[2020-10-08] MEDS ORDERED: ACETAMINOPHEN INJECTION 100 ML IVPB ONE (06:02)
[2020-10-08] MEDS ORDERED: MAG HYDROX/AL HYDROX/SIMETH 30 ML UNIT-DOSE CUP ONE (06:02)
[2020-10-08] MEDS ORDERED: ONDANSETRON 4 MG/2 ML VIAL ONE ×2 (06:02→12:44)
[2020-10-08 06:18] LABS: CALCIUM 8.2 mg/dL (8.5-10.1)
[2020-10-08 06:19] LABS: ALBUMIN 3.5 g/dl (3.4-5.0); BLOOD UREA NITROGEN 13.7 mg/dL (7-18)
[2020-10-08 06:22] LABS: CREATININE 0.8 mg/dL (0.55-1.3)
[2020-10-08 06:23] LABS: BILIRUBIN,TOTAL 0.3 mg/dL (0.2-1)
[2020-10-08] MEDS ORDERED: morphine CARPU-JECT 2 MG/1 ML DISP.SYRIN IVPUSH ONE (08:26)
[2020-10-08] MEDS ORDERED: MORPHINE SULFATE 2 MG/ML VIAL ONE (09:22)
[2020-10-08 09:50] LABS: EPI CELLS 18 /uL (0-25.1); HYALINE CASTS 0 /uL (0-3.1); URINE APPEARANCE CLOUDY; URINE BACTERIA 757 /uL (0-1359); URINE BILIRUBIN NEGATIVE (NEGATIVE); URINE COLOR YELLOW; URINE GLUCOSE (UA) NEGATIVE (NEGATIVE); URINE KETONE NEGATIVE (NEGATIVE); URINE LEUK ESTERASE TRACE (NEGATIVE); URINE NITRITE NEGATIVE (NEGATIVE); URINE PROTEIN NEGATIVE (NEGATIVE); URINE RBC 5 /uL (0-23.9); URINE UROBILINOGEN 0.2 mg/dL (0.2-1.0); URINE WBC 40 /uL (0-25.8)
[2020-10-08] MEDS ORDERED: morphine SULFATE 4 MG/ML VIAL IVPUSH ONE (10:21)
[2020-10-08] MEDS ORDERED: morphine SULFATE 4 MG/ML VIAL ONE (10:21)
[2020-10-08] MEDS ORDERED: BUPIVACAINE HCL 100 ML ONE (12:57)
[2020-10-08] MEDS ORDERED: morphine SULFATE 4 MG/ML VIAL IVPUSH PRN (13:05)
[2020-10-08] MEDS ORDERED: ACETAMINOPHEN 1000 MG/100 ML VIAL (NON FORMULARY) IVPB PRN ×2 (13:07→15:53)
[2020-10-08] MEDS ORDERED: fentaNYL CITRATE 250 MCG/5 ML VIAL ONE (13:10)
[2020-10-08] MEDS ORDERED: SUCCINYLCHOLINE CHLORIDE 200 MG/10 ML SYRINGE ONE (13:11)
[2020-10-08] MEDS ORDERED: ROCURONIUM BROMIDE 50 MG/5 ML SYRINGE ONE (13:11)
[2020-10-08] MEDS ORDERED: PROPOFOL 20 ML ONE (13:11)
[2020-10-08] MEDS ORDERED: LACTATED RINGERS SOLUTION 1,000 ML IV SCH (13:15)
[2020-10-08] MEDS ORDERED: LIDOCAINE HCL/PF 2% SDV 5ML VIAL ONE (13:34)
[2020-10-08] MEDS ORDERED: DEXAMETHASONE SOD PHOSPHATE 4 MG/1 ML VIAL ONE (13:34)
[2020-10-08] MEDS ORDERED: MIDAZOLAM HCL 2 MG/2 ML SINGLE DOSE VIAL ONE (13:34)
[2020-10-08 13:44] LABS: PROTHROMBIN TIME (PATIENT) 12.3 SEC (9.7-13.0)
[2020-10-08 13:47] LABS: ACTIVATED PTT 30.9 SECONDS (25.2-36.5)
[2020-10-08] MEDS ORDERED: ceFAZolin 2 GRAM PREMIX BAG IVPB ONE (13:56)
[2020-10-08] MEDS ORDERED: ceFAZolin SODIUM 1 GM VIAL ONE (13:57)
[2020-10-08] MEDS ORDERED: GLYCOPYRROLATE 0.2 MG/1 ML VIAL ONE (15:07)
[2020-10-08] MEDS ORDERED: NEOSTIGMINE METHYLSULFATE 0.5 MG/ML - 10 ML MDV ONE (15:07)
[2020-10-08] MEDS ORDERED: BUPIVACAINE HCL/PF 0.5% (5 MG/ML) 30 ML VIAL IJ ONE (15:17)
[2020-10-08] MEDS ORDERED: ONDANSETRON 4 MG/2 ML VIAL IVPUSH PRN ×2 (15:47→18:00)
[2020-10-08] MEDS: LACTATED RINGERS SOLUTION 1,000 ML IV SCH (18:19)
[2020-10-08] MEDS: morphine SULFATE 4 MG/ML VIAL IVPUSH PRN ×2 (18:22→22:32)
[2020-10-09] MEDS: LACTATED RINGERS SOLUTION 1,000 ML IV SCH ×4 (01:20→23:52)
[2020-10-09] MEDS: morphine SULFATE 4 MG/ML VIAL IVPUSH PRN ×3 (02:12→22:56)
[2020-10-09] MEDS: oxyCODONE HCL 5 MG TABLET PO PRN ×3 (06:39→18:18)
[2020-10-09 09:32] LABS: BASO % 0.3 % (0-2.0); EOS % 0.5 % (0-4.5); HEMATOCRIT 33.8 % (32.4-45.2); HEMOGLOBIN 11.4 GM/dL (10.7-15.3); LYMPH % 22.8 % (8-40); MCH 30.2 pg (25.7-33.7); MCHC 33.6 g/dl (32.0-36.0); MEAN CELL VOLUME 89.8 fl (80-96); MEAN PLT VOLUME 7.6 fl (7.5-11.1); MONO % 7.2 % (3.8-10.2); NEUT % 69.2 % (42.8-82.8); PLATELET COUNT 361 10^3/uL (134-434); RBC 3.76 M/mm3 (3.60-5.2); RDW 13.1 % (11.6-15.6); WHITE BLOOD COUNT 9.9 K/mm3 (4.0-10.0)
[2020-10-09] MEDS: ENOXAPARIN NA (PORCINE) 40 MG/0.4 ML DISP.SYRIN SQ SCH (09:53)
[2020-10-09] MEDS ORDERED: ENOXAPARIN NA (PORCINE) 40 MG/0.4 ML DISP.SYRIN SQ SCH (10:00)
[2020-10-09 10:09] LABS: ALBUMIN 3.2 g/dl (3.4-5.0); BLOOD UREA NITROGEN 5.3 mg/dL (7-18)
[2020-10-09 10:11] LABS: BILIRUBIN,TOTAL 0.4 mg/dL (0.2-1); CALCIUM 8.7 mg/dL (8.5-10.1)
[2020-10-09 10:12] LABS: CREATININE 0.7 mg/dL (0.55-1.3)
[2020-10-09 10:13] LABS: TOT PROT 6.4 g/dl (6.4-8.2)
[2020-10-09] MEDS ORDERED: SIMETHICONE 80 MG TAB.CHEW (FP) PO ONE (20:46)
[2020-10-09] MEDS ORDERED: FAMOTIDINE 20 MG TABLET PO ONE (20:47)
[2020-10-10] MEDS: oxyCODONE HCL 5 MG TABLET PO PRN ×2 (03:15→11:55)
[2020-10-10] MEDS: morphine SULFATE 4 MG/ML VIAL IVPUSH PRN ×2 (06:11→14:48)
[2020-10-10] MEDS: LACTATED RINGERS SOLUTION 1,000 ML IV SCH ×2 (06:25→17:04)
[2020-10-10 08:16] LABS: MEAN CELL VOLUME 89.9 fl (80-96); RBC 3.67 M/mm3 (3.60-5.2); WHITE BLOOD COUNT 7.7 K/mm3 (4.0-10.0)
[2020-10-10 08:17] LABS: BASO % 0.4 % (0-2.0); EOS % 1.9 % (0-4.5); MCH 29.8 pg (25.7-33.7); MCHC 33.2 g/dl (32.0-36.0); MEAN PLT VOLUME 7.3 fl (7.5-11.1); NEUT % 64.7 % (42.8-82.8); PLATELET COUNT 319 10^3/uL (134-434); RDW 13.1 % (11.6-15.6)
[2020-10-10 08:37] LABS: BLOOD UREA NITROGEN 5.3 mg/dL (7-18)
[2020-10-10 08:39] LABS: CALCIUM 8.4 mg/dL (8.5-10.1)
[2020-10-10 08:40] LABS: BILIRUBIN,TOTAL 0.5 mg/dL (0.2-1); TOT PROT 6.2 g/dl (6.4-8.2)
[2020-10-10 08:41] LABS: CREATININE 0.7 mg/dL (0.55-1.3)
[2020-10-10] MEDS: ENOXAPARIN NA (PORCINE) 40 MG/0.4 ML DISP.SYRIN SQ SCH (10:24)
[2020-10-10] MEDS ORDERED: SIMETHICONE 40 MG/0.6 ML BOTTLE PO PRN (13:14)
[2020-10-10 14:33] VITALS: BP 146/94; PULSE 84; TEMP 99.3
== END 2020-10-10 18:57 | disposition home or self-care (01) | DRG 263 ==
LOC: JER 05:23 → JERBED 12:25 → J6S 17:36
PROVIDERS: ATTEND Internal Medicine
PROC: 0FT44ZZ Resection of Gallbladder, Percutaneous Endoscopic Approach (ICD-10-PCS; principal; 2020-10-08 13:30)
DX: K80.00 Calculus of gallbladder with acute cholecystitis without obstruction (principal); E66.01 Morbid (severe) obesity due to excess calories; E78.5 Hyperlipidemia, unspecified; Z68.41 Body mass index [BMI] 40.0-44.9, adult
CPT/HCPCS: 36415; 74176-TC; 76705-TC; 80053; 80061; 81003; 83036; 83690; 83721; 84439; 84443; 84703; 85025; 85610; 85730; 86850; 86900; 86901; 87086; 87186; 88304-TC; 93005; 93010; 94010; 94760; 99285-25; C9803; J0131; U0003; U0005